=== PATIENT | female | born 1985 | race African-American/Black ===

== ENCOUNTER 2019-02-18 11:27 | Emergency (ER) | payer MEDICAID ==
[~2019-02-18] VITALS: Ht 172.7 cm; Wt 90.0 kg
[2019-02-18] MEDS ORDERED: SODIUM CHLORIDE 0.9% 1,000 ML IV ONE (12:07)
[2019-02-18] MEDS ORDERED: ONDANSETRON HCL 4MG/2ML INJ IV STA (12:07)
[2019-02-18] MEDS: FAMOTIDINE 20MG/2ML VIAL IV ONE ×2 (13:00→13:22)
[2019-02-18 13:01] LABS: HEMATOCRIT. 42.4 % (36.0-48.0); HEMOGLOBIN. 14.7 g/dL (12.0-16.0); MEAN CORPUSCULAR HEMOGLOBIN 31.5 pg (28.0-32.0); MEAN CORPUSCULAR VOLUME 90.9 fL (81.0-99.0); MEAN PLATELET VOLUME 8.8 fl (7.4-10.4); PLATELET 217 x1000/uL (130-400); RED BLOOD CELL COUNT 4.66 mill/uL (4.2-5.4); RED CELL DISTRIBUTION WIDTH 12.7 % (11.6-14.6)
[2019-02-18 13:06] LABS: CHLORIDE 106 mEq/L (98-107)
[2019-02-18 13:11] LABS: PROTHROMBIN TIME 9.9 sec (9.6-11.0)
[2019-02-18 13:31] LABS: B-HCG QUANTITATIVE 21204 mIU/mL (<3)
[2019-02-18 13:35] LABS: PLATELET ESTIMATE NORMAL
[2019-02-18 14:05] LABS: CLARITY URINE CLOUDY (CLEAR); COLOR URINE YELLOW (YELLOW); KETONES URINE 2+ (NEGATIVE); LEUKOCYTE ESTERASE URINE TRACE (NEGATIVE); NITRITE URINE NEGATIVE (NEGATIVE); OCCULT BLOOD URINE NEGATIVE (NEGATIVE); PROTEIN URINE TRACE (NEGATIVE); SPECIFIC GRAVITY URINE 1.038 (1.005-1.030); UROBILINOGEN URINE 0.2 E.U./dL (0.2-1.0)
[2019-02-18 14:57] LABS: *AMPHETAMINES SCREEN URINE NEGATIVE (NEGATIVE); *BARBITURATES SCREEN URINE NEGATIVE (NEGATIVE)
[2019-02-18 14:58] LABS: *BENZODIAZEPINES SCREEN URINE NEGATIVE (NEGATIVE); *COCAINE SCREEN URINE NEGATIVE (NEGATIVE); METHADONE URINE SCREEN NEGATIVE (NEGATIVE); OPIATES URINE SCREEN NEGATIVE (NEGATIVE); PHENCYCLIDINE URINE SCREEN NEGATIVE (NEGATIVE)
[2019-02-18 15:03] LABS: CANNABINOID URINE SCREEN PRESUMTIVE POSITIVE (NEGATIVE)
[2019-02-18 17:25] VITALS: BP 108/48
== END 2019-02-18 17:30 | disposition home or self-care (01) ==
LOC: ER 11:27
DX: O21.9 Vomiting of pregnancy, unspecified (principal); O26.892 Other specified pregnancy related conditions, second trimester; R10.13 Epigastric pain; R73.9 Hyperglycemia, unspecified; O99.322 Drug use complicating pregnancy, second trimester; F12.90 Cannabis use, unspecified, uncomplicated; Z3A.17 17 weeks gestation of pregnancy
CPT/HCPCS: 36415; 76705; 76805; 80053; 80305; 81003; 81025; 83690; 84702; 85025; 85610; 86850; 86900; 86901; 96361; 96374; 96375; 99284; J2405; J3490; J7030

== ENCOUNTER 2019-04-15 08:08 | Emergency (ER) | payer MEDICAID ==
[~2019-04-15] VITALS: Ht 172.7 cm; Wt 90.0 kg
[2019-04-15] MEDS ORDERED: ACETAMINOPHEN 325MG TABLET PO ONE (10:00)
[2019-04-15] MEDS ORDERED: ACYCLOVIR 400 MG TABLET PO ONE (10:15)
[2019-04-15 11:08] VITALS: BP 123/61
== END 2019-04-15 11:18 | disposition home or self-care (01) ==
LOC: ER 08:23
DX: O98.512 Other viral diseases complicating pregnancy, second trimester (principal); B02.9 Zoster without complications; Z3A.24 24 weeks gestation of pregnancy; Z98.890 Other specified postprocedural states
CPT/HCPCS: 99283; Z7610

== ENCOUNTER 2024-07-02 12:00 | Emergency (ER) | payer MEDICAID, OTHER ==
[~2024-07-02] VITALS: Ht 172.7 cm; Wt 72.0 kg
[2024-07-02 12:13] VITALS: O2SAT 100
[2024-07-02] MEDS: ACETAMINOPHEN 325MG TABLET PO ONE (14:59)
[2024-07-02 16:19] VITALS: BP 103/68; PULSE 98; RESP 18; TEMP 37.05852; O2SAT 98
== END 2024-07-02 16:24 | disposition home or self-care (01) ==
LOC: ER 12:00
DX: B34.9 Viral infection, unspecified (principal); Z20.822 Contact with and (suspected) exposure to COVID-19
CPT/HCPCS: 71045; 87426; 99284